=== PATIENT | male | born 1985 | race Two or more races ===

== ENCOUNTER → 2024-07-09 | Outpatient (CLI) | payer MEDICAID, SELFPAY ==
--- NOTE | 2024-07-09 08:58 | XR_ITS ---
Examination: Esophagram Fluoroscopy 21 spot fluoroscopic films of the esophagus Upright PA chest single view Upright soft tissue lateral neck single view Date and time: July 09, 2024 0913 hours INDICATIONS: Difficulty swallowing 5 years TECHNIQUE AND FINDINGS: Upright PA chest demonstrates normal heart size Lungs are clear Upright soft tissue lateral neck demonstrates normal epiglottis Patient swallowed thin barium with 21 spot fluoroscopic films of the esophagus obtained Primary peristaltic esophageal waves noted No esophageal ulceration No constricting esophageal lesion Mild intermittent gastroesophageal reflux There is no stricture at the gastroesophageal junction IMPRESSION: Mild intermittent gastroesophageal reflux No stricture at the gastroesophageal junction Fluoroscopy 0.11 minutes 21 spot fluoroscopic films of the esophagus
== END | disposition home or self-care (01) ==
LOC: CDIM 08:49
PROVIDERS: PCP Physician Assistant Medical; Referring Provider Physician Assistant Medical; Visit Provider Physician Assistant Medical
DX: K21.9 Gastro-esophageal reflux disease without esophagitis (principal)
CPT/HCPCS: 74220; A4699